=== PATIENT | female | born 1985 | race Caucasian/White ===

== ENCOUNTER 2017-02-28 09:05 | Day surgery (SDC) | payer BC ==
[~2017-02-28] VITALS: Ht 160 cm; Wt 84.0 kg
[~2017-02-28 09:05] MED LIST: BENTYL10 MG PO; JUNEL FE 1.5-31 EACH PO; LEVOTHROID112 MCG PO; LEVOTHYROXINE100 MCG PO; LEVOTHYROXINE112 MCG PO; LIBRAX, CLI1 CAPSULE PO; Motrin PO; NAPROSYN500 MG PO; Percocet 5/325,Endoc PO; SYNTHROID75 MCG PO; ZANTAC150 MG PO; ZOFRAN ODT4 MG PO; ZOFRAN8 M1 PO
[2017-02-28 09:31] VITALS: BP 124/67
[2017-02-28 13:44] VITALS: BP 113/72
[2017-02-28 14:36] VITALS: BP 107/69
== END 2017-02-28 14:58 | disposition home or self-care (01) ==
LOC: SDC 09:05
PROC: 0UDB8ZX Extraction of Endometrium, Via Natural or Artificial Opening Endoscopic, Diagnostic (ICD-10-PCS; principal; 2017-02-28)
DX: N93.8 Other specified abnormal uterine and vaginal bleeding (principal); A63.0 Anogenital (venereal) warts; N94.6 Dysmenorrhea, unspecified; D64.9 Anemia, unspecified; D68.0 Von Willebrand disease; K21.9 Gastro-esophageal reflux disease without esophagitis; E06.3 Autoimmune thyroiditis; Z88.0 Allergy status to penicillin; Z83.3 Family history of diabetes mellitus; Z83.2 Family history of diseases of the blood and blood-forming organs and certain disorders involving the immune mechanism; Z82.0 Family history of epilepsy and other diseases of the nervous system
CPT/HCPCS: 88305; J1580; J2250; J2765; J3010; J7050; S0030

== ENCOUNTER 2017-03-01 16:08 | Emergency (ER) | payer BC ==
[~2017-03-01] VITALS: Ht 160 cm; Wt 71.8 kg
[2017-03-01 16:32] VITALS: BP 122/76
[2017-03-01 17:07] LABS: HEMATOCRIT 39.9 % (36.0-46.0); MCH 29.7 PG (29.0-34.0); MCHC 33.1 G/DL (30.0-36.0); MCV 89.9 FL (83-99); MEAN PLAT.VOLUME 9.2 uM^3 (9.5-12.4); PLATELET COUNT 313 K/uL (156-360); RBC DIS.WIDTH-CV 12.5 % (11.8-14.6); RBC DIS.WIDTH-SD 41.1 % (39-53); RED BLOOD COUNT 4.44 M/uL (3.80-5.20); WHITE BLOOD COUNT 8.1 K/uL (4.1-10.2)
[2017-03-01 17:17] LABS: CHLORIDE 107 mEq/L (99-109); POTASSIUM 4.2 mEq/L (3.7-5.4); SODIUM 141 mEq/L (136-147)
[2017-03-01 17:18] LABS: GLUCOSE 88 mg/dL (70-99)
[2017-03-01 17:20] LABS: ANION GAP 10 MEQ/L (2-14)
[2017-03-01 17:22] LABS: GFR ESTIMATE (CALCULATED) > 59 mL/min/
[2017-03-01 17:23] LABS: UREA NITROGEN (BUN) 10 mg/dL (9-23)
[2017-03-01 17:28] LABS: TROP-I INTERPRETATION NEGATIVE; TROPONIN-I < 0.01 ng/mL (0.0-0.30)
== END 2017-03-01 19:46 | disposition left against medical advice (07) ==
LOC: EME 16:08
DX: R07.9 Chest pain, unspecified (principal); Z53.21 Procedure and treatment not carried out due to patient leaving prior to being seen by health care provider
CPT/HCPCS: 71020; 80048; 84484; 85027; 93005